=== PATIENT | female | born 1940 | race Hispanic/Latino ===

== ENCOUNTER → 2018-03-06 | Outpatient (CLI) | payer OTHER ==
[~2018-03-06] MED LIST: ALENDRONATE SOD10 MG PO; AMLODIPINE BESY10 MG PO; BACTRIM DS TAB1 EACH PO; CRESTOR10 MG PO; DIATRIZOATE MEGL/DIATRIZOA SOD 30 ML BTL PO ONE; ECOTRIN325 MG PO; FOSINOPRIL SODI10 MG PO; FOSINOPRIL SODI20 M1 PO; HYDROCHLOROTHIA25 MG PO; IOPAMIDOL 370 MG/ML 200 ML INFUS..BTL INJ ONE; JANUVIA100 MG PO; LEVOTHYROXINE25 MCG PO; LINZESS PO; LIPITOR20 MG PO; METFORMIN HCL500 M2 PO; METFORMIN HCL500 M3; PEPCID20 MG PO; PLAVIX75 MG PO; SODIUM CHLORIDE 0.9% 50ML 50 ML ONE; Z.0.AMLODIPINE BESYL PO; Z.0.BONIVA150 MG PO; Z.0.GLIPIZIDE5 MG PO; Z.0.HYDROCHLOROTHIA2 PO; Z.2.METFORMIN HCL500 PO
[2018-03-06 08:48] LABS: BLOOD UREA NITROGEN 16 mg/dL (7-26); BUN/CREATININE RATIO 20 (6-25); CREATININE, SERUM 0.79 mg/dL (0.57-1.11); EST GLOMERULAR FILTRATION RATE > 60 ML/MIN (60-)
--- NOTE | 2018-03-06 11:46 | Diagnostic Imaging Report ---
PROCEDURE: CT ABDOMEN AND PELVIS WITH CONTRAST TECHNIQUE: The abdomen and pelvis were scanned utilizing a multidetector helical scanner from the diaphragm to the lesser trochanter after the IV administration of 100 cc of Isovue 370 and the oral administration of dilute Gastrografin. Coronal and sagittal multiplanar reformations were obtained. COMPARISON: None. INDICATIONS: FREQUENT UTI, COLOVESICAL FISTULA FINDINGS: LOWER THORAX: Lung bases are clear. Atherosclerotic calcification of the thoracic aorta.. HEPATOBILIARY: No focal hepatic lesions. No biliary ductal dilatation. Gallbladder is unremarkable. SPLEEN: No splenomegaly. PANCREAS: No focal masses or ductal dilatation. ADRENALS: No adrenal nodules. KIDNEYS/URETERS: 7-8 mm linear calcific density in the right superior pole (coronal image 64 and series 2, image 27). Punctate, nonobstructing calculus in the right superior to mid aspect (series 2, image 31). No other renal or any ureteral calculi. No hydronephrosis or obstruction. No solid enhancing masses. PELVIC ORGANS/BLADDER: Bladder is unremarkable, without wall thickening, or focal lesions. No contrast or air are seen in the bladder. Uterus is absent. No adnexal masses. PERITONEUM / RETROPERITONEUM: No free air or fluid. LYMPH NODES: No lymphadenopathy. VESSELS: Celiac trunk, superior and inferior mesenteric, and bilateral renal arteries are patent. Portal, superior mesenteric and splenic veins are patent. Atherosclerotic calcification of the abdominal aorta and iliac vessels. GI TRACT: No bowel dilation or evidence of obstruction. Distal descending and sigmoid colon diverticulosis, without diverticulitis. Moderate distention of the distal sigmoid and rectum which measures approximately 5.6 cm in diameter, with mild to moderate retained stool. No pericolonic inflammatory changes. BONES AND SOFT TISSUES: No acute bony abnormalities. Multilevel degenerative disc changes in the lower thoracic and lumbosacral spine. Compression deformity of the T12 vertebral body with vertebroplasty changes. Anterior wedge deformity of the L1 vertebral body. Soft tissues are grossly unremarkable.. IMPRESSION: 1. Bladder is unremarkable, without intraluminal contrast or air to suggest colovesical fistula. 2. Descending and sigmoid colon diverticulosis, without diverticulitis. No pericolonic inflammatory changes. 3. 7-8 mm linear calcific density in the right superior pole may represent a nonobstructing calculus or vascular calcification. There is a punctate, nonobstructing calculus in the right renal superior to mid aspect. No ureteral calculi, hydronephrosis, or obstruction. 4. Moderate distention of the distal sigmoid and rectum with mild to moderate retained stool. Ganga Robertson M.D. Dictated by: Ganga Robertson M.D. on 03/06/2018 at 11:44 Electronically approved by: Ganga Robertson M.D. on 03/06/2018 at 11:44
== END ==
LOC: CT 08:03
PROVIDERS: ATTEND Urology
DX: N81.89 Other female genital prolapse (principal); N95.2 Postmenopausal atrophic vaginitis
CPT/HCPCS: 36415; 74177; 82565; 84520; Q9967

== ENCOUNTER → 2019-04-24 | Day surgery (SDC) | payer OTHER ==
--- NOTE | 2019-04-20 15:47 | Diagnostic Imaging Report ---
Chest, 2 views, 04/20/2019. History: Preop, shortness of breath. Comparison: 03/26/2018. Findings: The cardiomediastinal silhouette and pulmonary vasculature are within normal limits. Minimal linear opacities are present in the left midlung laterally. The lungs are otherwise clear without evidence of consolidation or pleural effusion. Degenerative changes are present within the thoracic and lumbar spine. Vertebral body cement augmentation is noted in the upper lumbar spine. Deformity of the left humeral neck is consistent with old trauma. There are no acute osseous or soft tissue abnormalities. Impression: No acute cardiopulmonary abnormality. Signed by: Jose Enrique Ragland on 04/20/2019 3:44 PM
[2019-04-20 16:37] LABS: BASOPHILS % 0.5 % (0.0-1.0); EOSINOPHILS # (AUTO) 0.3 (0.0-0.4); EOSINOPHILS % 3.2 % (0.0-6.0); HEMATOCRIT 39.6 % (34.2-44.1); HEMOGLOBIN 12.7 g/dL (12.0-16.0); LYMPHOCYTES # (AUTO) 2.4 (1.0-3.2); LYMPHOCYTES % 29.6 % (18.0-39.1); MEAN CORPUSCULAR HEMOGLOBIN 29.5 pg (28-32); MEAN CORPUSCULAR HGB CONC 32.1 g/dL (31-35); MEAN CORPUSCULAR VOLUME 91.9 fL (81-99); MONOCYTES # (AUTO) 0.8 (0.2-0.8); MONOCYTES % 9.5 % (4.4-11.3); NEUTROPHILS # (AUTO) 4.5 (2.1-6.9); NEUTROPHILS % 56.8 % (38.7-80.0); PLATELET COUNT 180 x10e3/uL (140-360); RED BLOOD COUNT 4.31 x10e6/uL (3.6-5.1); RED CELL DISTRIBUTION WIDTH 13.3 % (11.7-14.4)
[2019-04-20 17:01] LABS: BLOOD UREA NITROGEN 15 mg/dL (7-26); BUN/CREATININE RATIO 19 (6-25); CALCIUM 9.5 mg/dL (8.4-10.2); CARBON DIOXIDE 28 mmol/L (22-29); CHLORIDE 102 mmol/L (98-107); CREATININE, SERUM 0.81 mg/dL (0.57-1.11); EST GLOMERULAR FILTRATION RATE > 60 ML/MIN (60-); GLUCOSE 192 mg/dL (74-118); SODIUM 141 mmol/L (136-145)
[~2019-04-24] MED LIST changes: +AZO CRANBERRY1 EAC1 PO; +B&O 60MG R/S 60 MG SUPP PR ONE; +CIPRO500 MG PO; +DEXAMETHASONE SOD PHOS INJ 4 MG/ML VIAL ONE; -DIATRIZOATE MEGL/DIATRIZOA SOD 30 ML BTL PO ONE; -IOPAMIDOL 370 MG/ML 200 ML INFUS..BTL INJ ONE; +IOPAMIDOL 610MG/1ML 300 MG/ML VIAL IV ONE; +LIDOCAINE HCL 2% LOCAL INJ 5 ML SDV VIAL INJ ONE; +MERREM500 MG IV; +MYRBETRIQ50 MG PO; +ONDANSETRON HCL INJ 2MG/ML 2ML 2 MG/ML VIAL ONE; +PIPER-TAZ 3.375 GM 50 ML ONE; +PROPOFOL IV EMULSION 10 MG/ML 20 ML VIAL ONE; +SEVOFLURANE INHAL SOLN 250 ML PEN BTL ONE; -SODIUM CHLORIDE 0.9% 50ML 50 ML ONE; +TRADJENTA5 MG PO; +VITAMIN D2400 UNIT PO
[2019-04-24 13:37] VITALS: BP 142/76
--- NOTE | 2019-06-02 07:36 | Operative Report ---
DATE OF PROCEDURE: 04/24/2019 SURGEON: Isra Montano MD PREOPERATIVE DIAGNOSIS: Recurrent urinary tract infections. POSTOPERATIVE DIAGNOSES: 1. Recurrent urinary tract infections. 2. Grade 2 cystocele. 3. Urethral hypermobility. 4. Rectocele. 5. Atrophic (senile) vaginitis. OPERATIONS PERFORMED: 1. Cystourethroscopy with bilateral ureteral catheterization and retrograde ureteropyelography (separate procedure performed for the urinary tract infections). 2. Interpretation of retrograde ureteropyelography. 3. Supervision of fluoroscopy, no radiologist present. 4. Pelvic examination under anesthesia. ANESTHESIA: General. COMPLICATIONS: None. CLINICAL SUMMARY: Sonia Rodgers is a 78-year-old woman with recurrent urinary tract infection despite multiple modalities of . She was brought for re-evaluation. She is aware of the risks of bleeding, infection, injury to adjacent structures, need for additional procedures and elected to proceed. OPERATIVE PROCEDURE IN DETAIL: Informed consent was verified. Sonia Hollins was properly identified, and taken to the operating room, placed on the cystoscopy table in supine position. Anesthesia was uneventfully begun. The patient was then carefully and gently repositioned in the dorsal lithotomy position with all pressure points well padded. Her genitalia were prepared and draped in usual sterile fashion. The cystoscope sheath with obturator in place was atraumatically inserted into the patient's urethra and bladder was drained. Panendoscopy of the urinary bladder revealed no suspicious mucosal lesions, no tumors, no stones, and no diverticula. Normally positioned and configured ureteral orifices were identified. Ureteral catheter was used to cannulate each ureter and retrograde ureteral pyelograms were performed. Interpretation of retrograde ureteropyelography contrast was instilled in retrograde fashion bilaterally. There were no tumors, no stones, and no diverticula. Unobstructed drainage was observed bilaterally fluoroscopically. The patient's bladder was drained. Cystoscope was withdrawn. Pelvic examination reveals grade 2 cystocele with urethral hypermobility. There was a rectocele present. There was there was atrophic (senile) vaginitis. 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 No abnormal palpable pelvic masses could be appreciated. There were no obvious mucosal lesions . The patient was then uneventfully reversed from anesthesia and taken to recovery room in stable condition. Explicit postop instructions were given. We will follow the patient up in the office. MD CARROLL Nicholas/RICARDO /[id number] cc: .
== END | disposition home or self-care (01) ==
LOC: OR 11:00
PROVIDERS: ATTEND Urology
DX: N39.0 Urinary tract infection, site not specified (principal); N39.46 Mixed incontinence; I10 Essential (primary) hypertension; E11.9 Type 2 diabetes mellitus without complications; E78.00 Pure hypercholesterolemia, unspecified; K21.9 Gastro-esophageal reflux disease without esophagitis; M19.90 Unspecified osteoarthritis, unspecified site; N81.10 Cystocele, unspecified; N81.6 Rectocele; N36.41 Hypermobility of urethra; N95.2 Postmenopausal atrophic vaginitis; Z88.8 Allergy status to other drugs, medicaments and biological substances; Z91.018 Allergy to other foods; Z01.810 Encounter for preprocedural cardiovascular examination; Z01.812 Encounter for preprocedural laboratory examination; Z01.811 Encounter for preprocedural respiratory examination
CPT/HCPCS: 36415 ×2; 52005; 71046; 74420; 80048; 82948; 85025; 87086; 93005; J1100; J2001; J2405; J2543; J2704; Q9967

== ENCOUNTER 2020-05-29 10:13 | Emergency (ER) | payer MEDICARE, OTHER ==
[~2020-05-29] VITALS: Ht 165.1 cm; Wt 95.3 kg
[~2020-05-29 10:13] MED LIST changes: -B&O 60MG R/S 60 MG SUPP PR ONE; -DEXAMETHASONE SOD PHOS INJ 4 MG/ML VIAL ONE; -IOPAMIDOL 610MG/1ML 300 MG/ML VIAL IV ONE; -LIDOCAINE HCL 2% LOCAL INJ 5 ML SDV VIAL INJ ONE; -ONDANSETRON HCL INJ 2MG/ML 2ML 2 MG/ML VIAL ONE; -PIPER-TAZ 3.375 GM 50 ML ONE; -PROPOFOL IV EMULSION 10 MG/ML 20 ML VIAL ONE; -SEVOFLURANE INHAL SOLN 250 ML PEN BTL ONE
--- NOTE | 2020-05-29 10:35 | Emergency Department Note ---
History of Present Illnes History of Present Illness Chief Complaint: Genitourinary History of Present Illness This is a 80 year old female PATIENT IN FROM HOME WITH COMPLAINTS OF URINARY FREQUENCY AND PAIN WITH URINATION SINCE LAST NIGHT; STATES THAT SHE HAS BEEN TREATED BY DR MONTANO FOR RECURRENT UTI'S, BUT SINCE THE START OF THE PANDEMIC SHE HAS NOT BEEN SEEN. PATIENT DENIES PAIN AT THIS TIME, BUT STATES THAT SHE HAS BURNING WITH URINATION. Historian: Patient Arrival Mode: Car Junior Network Engineer Required: No Onset (how long ago): day(s) (last night) Location: urinary Quality: burning Radiation: Reports non-radiation Severity: moderate Onset quality: gradual Timing of current episode: intermittent Progression: waxing and waning Chronicity: recurrent Context: Denies recent illness Relieving factors: none Exacerbating factors: none Associated symptoms: Reports denies other symptoms Past Medical/Family History Physician Review I have reviewed the patient's past medical and family history. Any updates have been documented here. Past Medical History Recent Fever: No Clinical Suspicion of Infectio: No New/Unexplained Change in Ment: No Past Medical History: Hypertension, Diabetes, UTI's, Hyperlipedemia Other Medical History: hyperlipidemia Past Surgical History: Back Surgery Other Surgery: back surgery Social History Smoking Cessation: Never Smoker Counseling Performed: No Alcohol Use: None Any Illegal Drug Use: No TB Exposure/Symptoms: No Physically hurt or threatened: No Family History Family history of heart diseas: No Other Last Tetanus: UNK Any Pre-Existing Lines (PICC,: No Review of Systems Review of Systems Constitutional: Reports no symptoms EENTM: Reports no symptoms Cardiovascular: Reports no symptoms Respiratory: Reports no symptoms Gastrointestinal: Reports no symptoms Genitourinary: Reports as per HPI, Reports dysuria, Reports frequency Musculoskeletal: Reports no symptoms Integumentary: Reports no symptoms Neurological: Reports no symptoms Psychological: Reports no symptoms Endocrine: Reports no symptoms Hematological/Lymphatic: Reports no symptoms Physical Exam Related Data Allergies: Coded Allergies: jacqueline (Verified Allergy, Intermediate, LIPS SWELL, 05/29/20) strawberry (Verified Allergy, Intermediate, LIPS SWELL, 05/29/20) cefaclor (Verified Allergy, Mild, URTICARIA, 05/29/20) meperidine (Verified Allergy, Mild, NAUSEA AND VOMITING, 05/29/20) Triage Vital Signs Vital Signs Date Time Temp Pulse Resp B/P (MAP) Pulse Ox O2 Delivery O2 Flow Rate FiO2 05/29/20 10:17 98.1 102 18 183/89 100 Room Air Vital signs reviewed: Yes Physical Exam CONSTITUTIONAL Constitutional: Present well-developed, Present well-nourished HENT HENT: Present normocephalic, Present atraumatic, Present oropharynx clear/moist, Present nose normal HENT L/R: Present left ext ear normal, Present right ext ear normal EYES Eyes: Reports PERRL, Reports conjunctivae normal NECK Neck: Present ROM normal PULMONARY Pulmonary: Present effort normal, Present breath sounds normal CARDIOVASCULAR Cardiovascular: Present regular rhythm, Present heart sounds normal, Present capillary refill normal, Present normal rate, Present murmur (1/6 sys murmur) GASTROINTESTINAL Abdominal: Present soft, Present nontender, Present bowel sounds normal GENITOURINARY Genitourinary: Present exam deferred SKIN Skin: Present warm, Present dry MUSCULOSKELETAL Musculoskeletal: Present ROM normal NEUROLOGICAL Neurological: Present alert, Present oriented x 3, Present no gross motor or sensory deficits PSYCHOLOGICAL Psychological: Present mood/affect normal, Present judgement normal Results Laboratory Laboratory Laboratory Tests Test 05/29/20 10:22 Urine Color Yellow (YELLOW) Urine Clarity Sl cloudy (CLEAR) Urine pH 6.5 (5 - 7) Urine Specific [place] 1.020 (1.010-1.025) Urine Protein Negative (NEGATIVE) Urine Glucose (UA) Negative (NEGATIVE) Urine Ketones Negative (NEGATIVE) Urine Blood Negative (NEGATIVE) Urine Nitrite Positive (NEGATIVE) Urine Bilirubin Negative (NEGATIVE) Urine Urobilinogen 0.2 mg/dL (0.2 - 1) Urine Leukocyte Esterase Trace (NEGATIVE) Urine RBC 0-5 /HPF (0-5) Urine WBC 11-20 /HPF (0-5) Urine Epithelial Cells Moderate /LPF (NONE) Urine Bacteria Many /HPF (NONE) Urine Mucus Few (RARE) Lab results reviewed: Yes Assessment & Plan Medical Decision Making MDM pt presents with urinary freq and dysuria - check UA/cx, likely ds/c with abx's Reassessment Reassessment dc home, Cipro & Macrobid BID x 10 days, Zofran ODT, Pyridium, F/U PCP and Dr Montano - call in am for appt ~3-4 days to F/U urine cx results Assessment & Plan Final Impression: (1) UTI (urinary tract infection) Depart Disposition: HOME, SELF-CARE Last Vital Signs Date Time Temp Pulse Resp B/P (MAP) Pulse Ox O2 Delivery O2 Flow Rate FiO2 05/29/20 10:17 98.1 102 18 183/89 100 Room Air Home Meds Reported Medications Mirabegron (MYRBETRIQ) 50 Mg Tab.er.24h, PO DAILY 04/24/19 Ergocalciferol (Vitamin D2) (VITAMIN D2) 400 Unit Tablet, PO 04/20/19 Linagliptin (TRADJENTA) 5 Mg Tablet, PO HS 04/20/19 Fosinopril Sodium (FOSINOPRIL SODIUM) 10 Mg Tablet, 20 MG PO HS, #30 TAB 10/25/17 Atorvastatin Calcium (LIPITOR) 20 Mg Tablet, 40 MG PO HS, #30 TAB 10/25/17 Amlodipine Besylate (AMLODIPINE BESYLATE) 10 Mg Tablet, 10 MG PO HS, #30 TAB 10/25/17 Clopidogrel Bisulfate* (PLAVIX) 75 Mg Tablet, 75 MG PO DAILY, #30 TAB 10/25/17 HARRISON LOCKE MD May 29, 2020 10:35
[2020-05-29 10:39] LABS: CLARITY,URINE SL CLOUDY (CLEAR); COLOR,URINE YELLOW (YELLOW); KETONES,URINE NEGATIVE (NEGATIVE); LEUKOCYTE ESTERASE ,URINE TRACE (NEGATIVE); NITRITE,URINE POSITIVE (NEGATIVE); PROTEIN,URINE DIPSTICK NEGATIVE (NEGATIVE)
[2020-05-29 10:40] LABS: BILIRUBIN,URINE NEGATIVE (NEGATIVE); URINE UROBILINOGEN 0.2 mg/dL (0.2 - 1)
[2020-05-29 10:53] LABS: BACTERIA,URINE MANY /HPF; EPITHELIAL CELLS,URINE MODERATE /LPF; MUCUS,URINE FEW (RARE); RBC,URINE 0-5 /HPF (0-5)
--- OUTSIDE RECORDS SUMMARY | 2020-05-29 16:52 | XMS REPORT | Continuity of Care Document ---
Author Author [facility] t Organization [facility] Address [address] [place] [phone] Phone Unavailable Care Team Providers Care Superintendent [employer] Name Role Phone JUANCARLOS HOGAN, MD URBINA PCP HAMPEL, ESA Attphys Unavailable DAHU, S JIRIES Attphys Unavailable TOMPKINS, NITZA Attphys Unavailable DAHU, S JIRIES Admphys Unavailable TOMPKINS, NITZA Admphys Unavailable Payers Payer Name Policy Type Policy Number Effective Date Expiration Date Rojelio regan [facility] [id number] 2018 00:00:00 [facility] [employer] [id number] 2018 00:00:00 [facility] Problems Condition Name Condition Details Condition Category Status Onset Date Resolution Date Last Treatment Date Treating Clinician Comments Source Hypertension Hypertension Problem Active [facility] Urinary tract infection due to extended- spectrum beta lactamase (ESBL) producing Escherichia coli UTI due to extended-spectrum beta lactam ase (ESBL) producing Escherichia coli Problem Active [facility] Urinary tract infection Problem Active [facility] Allergies, Adverse Reactions, Alerts Allergy Name Allergy Type Status Severity Reaction(s) Onset Date Inacti ve Date Treating Clinician Comments Source Cefaclor Allergy to substance Active Mild URTICARIA 2020-05-29 00:00:00 [facility] Meperidine Allergy to substance Active Mild NAUSEA AND VOMI TING 2020-05-29 00:00:00 [facility] [place] Allergy to substance Active Moderate LIPS SWELL 2020-05 00:00:00 [facility] jacqueline Allergy to substance Active Moderate LIPS SWELL 2020-05-29 00:00:0 0 [facility] Social History Social Habit Start Date Stop Date Quantity Comments Source Sex Assigned At 1940 00:00:00 1940 00:00:00 Female [facility] Medications Ordered Medication Name Filled Medication Name Start Date Stop Da te Current Medication? Ordering Clinician Indication Dosage Frequency Signature (SIG) Comments Components Source Amlodipine Besylate Amlodipine Besylate Yes 10 Bedtime [facility] Atorvastatin Calcium (Lipitor) 20 Mg TABLET Atorvastat in Calcium (Lipitor) 20 Mg TABLET Yes 40 Bedtime [facility] Clopidogrel Bisulfate (Plavix) 75 Mg TABLET Clopidogre l Bisulfate (Plavix) 75 Mg TABLET Yes 75 Daily [facility] Ergocalciferol (Vitamin D2) (Vitamin D2) 400 Unit TABL ET Ergocalciferol (Vitamin D2) (Vitamin D2) 400 Unit TABLET Yes [facility] Fosinopril Sodium Fosinopril Sodium Yes 20 Bedt daniel [facility] Linagliptin (Tradjenta) 5 Mg TABLET Linagliptin (Tradjenta) 5 Mg TABL ET Yes Bedtime [facility] Mirabegron (Myrbetriq) 50 Mg TAB.ER.24H Mirabegron (Myrbetri q) 50 Mg TAB.ER.24H Yes Daily [facility] Cranberry Extract/Vit C (Azo Cranberry Softgel) 1 Each CAPSULE Cranberry Extract/Vit C (Azo Cranberry Softgel) 1 Each CAPSULE 2019-04-20 00: 00:00 No 1 Twice A Day [facility] Levothyroxine Sodium Levothyroxine Sodium 2019-04-20 00:00:00 No 25 Daily [facility] Meropenem (Merrem) 500 Mg INJ Meropenem (Merrem) 500 Mg INJ 2019-04-20 00:00:00 No Every 8 Hours C HI [facility] Ciprofloxacin Hcl (Cipro) 500 Mg TABLET Ciprofloxacin Hcl (C ipro) 500 Mg TABLET 2018-03-31 00:00:00 No 500 Every 12 Hours [facility] Meropenem (Merrem) 500 Mg INJ Meropenem (Merrem) 500 Mg INJ 2018-03-31 00:00:00 No Every 6 Hours C HI [facility] Metformin Hcl (Metformin Hcl Er) 500 Mg TAB.ER.24 Metf ormin Hcl (Metformin Hcl Er) 500 Mg TAB.ER.24 2018-03-26 00:00:00 No 500 Twi ce A Day [facility] Sulfamethoxazole/Trimethoprim (Bactrim Ds Tablet) 1 Ea ch TABLET Sulfamethoxazole/Trimethoprim (Bactrim Ds Tablet) 1 Each TABLET 2017-10-30 00:00:00 No 1 Daily [facility] Alendronate Sodium Alendronate Sodium 2017-10-25 00:00:00 No 10 Weekly [facility] Amlodipine Besylate Amlodipine Besylate 2017-10-25 00:00:00 No 10 Daily [facility] Clopidogrel Bisulfate (Plavix) 75 Mg TABLET Clopidogre l Bisulfate (Plavix) 75 Mg TABLET 2017-10-25 00:00:00 No 75 Daily [facility] Fosinopril Sodium Fosinopril Sodium 2017-10-25 00:00:00 No 20 Daily [facility] Hydrochlorothiazide Hydrochlorothiazide 2017-10-25 00:00:00 No 25 Daily [facility] Levothyroxine Sodium Levothyroxine Sodium 2017-10-25 00:00:00 No 25 Daily [facility] Linzess Linzess 2017-10-25 00:00:00 No As Needed [facility] Rosuvastatin Calcium (Crestor) 10 Mg TAB Rosuvastatin Calcium (Crestor) 10 Mg TAB 2017-10-25 00:00:00 No 10 Daily [facility] Sitagliptin Phosphate (Januvia) 100 Mg TABLET Sitaglip tin Phosphate (Januvia) 100 Mg TABLET 2017-10-25 00:00:00 No 50 Daily [facility] Aspirin (Ecotrin) 325 Mg TABLET. Aspirin (Ecotrin) 325 Mg ROGERIO PARDO 2015-01-06 00:00:00 No 325 Daily [facility] Famotidine (Pepcid) 20 Mg TABLET Famotidine (Pepcid) 20 Mg TABLE T 2015-01-06 00:00:00 No 20 Daily [facility] Metformin Hcl Metformin Hcl 2015-01-06 00:00:00 No 500 Twice A Day [facility] Vital Signs Vital Name Observation Time Observation Value Comments Source Weight 2020-05-29 10:17:00 210 [lb_av] [facility] BMI (Body Mass Index) 2020-05-29 10:17:00 34.9 kg/m2 [facility] Procedures This patient has no known procedures. Plan of Care Planned Activity Planned Date Details Comments Source Instructions Urinary Tract Infection - Women [facility] Encounters Start Date/Time End Date/Time Encounter Type Admission Type Attendi [facility] Care Department Encounter ID Source 2020-05-29 10:42:00 2020-05-29 10:57:00 Departed Emergency Room [facility] [id number] [facility] dical Left Hand 2018-03-26 15:35:00 2018-03-31 19:45:00 Discharged Inpatient 3 MIKO RENEE [facility] [id number] [facility] 2018-03-06 08:03:00 2018-03-06 08:03:00 Registered Clinic 3 ESA RECIO [facility] [id number] [facility] Med ical Left Hand 2017-10-25 19:42:00 2017-10-30 11:02:00 Discharged Inpatient ER NITZA TOMPKINS [facility] [id number] [facility] Results Test Description Test Time Test Comments Results Result Comments Source Urine color determination 2020-05-29 10:22:00 Test Item Urine Color (test code = 5778-6) YELLOW YELLOW [facility] xfupvys3611-06-23 10:22:00* Test Item Value Reference Range Interpretation Comments Urine Clarity (test code = 03806-3) SL CLOUDY CLEAR [facility] U[facility] by Test strip 2020-05-29 10:22:00* Test Item Value Reference Range Interpretation Comments Urine Specific [place] (test code = 5811-5) 1.020 1.010-1.02 5 [facility] pH measurement by automated test gxjxg6728-61-79 10:22:00* Test Item Value Reference Range Interpretation Comments Urine pH (test code = 91900-7) 6.5 5-7 [facility] leukocyte esterase detection by rbehpcjb5789-15-54 10:22:00* Test Item Value Reference Range Interpretation Comments Urine Leukocyte Esterase (test code = 5799-2) TRACE NEGATIVE [facility] nitrite dltapayzr3179-29-99 10:22:00* Test Item Value Reference Range Interpretation Comments Urine Nitrite (test code = 98635-7) POSITIVE NEGATIVE [facility] Center[facility] protein measurement by test strip (mass/volume)2020-05-29 10:22:00* Test Item Value Reference Range Interpretation Comments Urine Protein (test code = 5804-0) NEGATIVE NEGATIVE [facility] CenterU[facility] glucose hyrbugddn4559-31-69 10:22:00* Test Item Value Reference Range Interpretation Comments Urine Glucose (UA) (test code = 2349-9) NEGATIVE NEGATIVE [facility] CenterU[facility] ketones detection by automated test rblfj4038-94-00 10:22:00* Test Item Value Reference Range Interpretation Comments Urine Ketones (test code = 89928-3) NEGATIVE NEGATIVE [facility] Center[facility] urobilinogen measurement by test strip (mass/volume)2020-05-29 10:22:00* Test Item Value Reference Range Interpretation Comments Urine Urobilinogen (test code = 68920-8) 0.2 0.2-1 [facility] Center[facility] total bilirubin measurement (mass/volume)2020-05-29 10:22:00* Test Item Value Reference Range Interpretation Comments Urine Bilirubin (test code = 1978-6) NEGATIVE NEGATIVE [facility] CenterU[facility] erythrocytes nfajijmqt2288-64-39 10:22:00* Test Item Value Reference Range Interpretation Comments Urine Blood (test code = 60057-4) NEGATIVE NEGATIVE [facility] CenterAutomated urine sediment leukocyte count by microscopy (number/high power field)2020-05-29 10:22:00* Test Item Value Reference Range Interpretation Comments Urine WBC (test code = 5821-4) 11-20 0-5 [facility] CenterErythrocytes detection in urine sediment by light aqanqdlatf5537-20-95 10:22:00* Test Item Value Reference Range Interpretation Comments Urine RBC (test code = 32059-5) 0-5 0-5 [facility] CenterBacteria detection in urine sediment by light jfzuywnyyd5487-43-99 10:22:00* Test Item Value Reference Range Interpretation Comments Urine Bacteria (test code = 54519-9) MANY NONE [facility] CenterEpithelial cells detection in urine sediment by light mtwjjkkeug1343-07-85 10:22:00* Test Item Value Reference Range Interpretation Comments Urine Epithelial Cells (test code = 19813-3) MODERATE NONE [facility] CenterMucus detection in urine sediment by light corkgapert5976-84-79 10:22:00* Test Item Value Reference Range Interpretation Comments Urine Mucus (test code = 8247-9) FEW RARE [facility] CenterCHEST 2 XWPRS4691-99-27 15:42:00 [facility] [address] [place] [address] Patient Name: ANAT TIAN MR #: [id number] : 1940 Age/Sex: 78/F Req #: [id number] Adm Physician: Ordered by: ESA CARPENTER MD Report #: [id number] Location: OR Room/Bed: Procedure: [id number] DX/ROMAN ST 2 VIEWS Exam Date: Exam Time: REPORT STATUS: Signed Chest, 2 views, 04/20/2019. History: Preop, shortness of breath. Comparison: 03/26/2018. Findings: The cardiomediastinal silhouette and pulmonary vasculature are with in normal limits. Minimal linear opacities are present in the left midlung l aterally. The lungs are otherwise clear without evidence of consolidation or p leural effusion. Degenerative changes are present within the thoracic and lumb ar spine. Vertebral body cement augmentation is noted in the upper lumbar spin e. Deformity of the left humeral neck is consistent with old trauma. There are no acute osseous or soft tissue abnormalities. Impression: No acute ca rdiopulmonary abnormality. Signed by: Jose Enrique Ragland on 04/20/2019 3:44 PM Dictated By: JOSE ENRIQUE RAGLAND MD Electronically Signed By: JOSE ENRIQUE RAGLAND MD o n 04/20/19 1544 Transcribed By: SHO on 04/20/19 1544 COPY TO: ESA HERR MD Bedside Wjipznc9942-05-73 12:17:00* Test Item Value Reference Range Interpretation Comments Bedside Glucose (test code = 44802-1) 105 70-120 Meter ID: [id number] [facility] Northwestodium Level 2018-03-31 08:49:00* Test Item Value Reference Range Interpretation Comments Sodium Level (test code = 2951-2) 144 136-145 [facility] CenterPotassium Dzfhq0971-56-72 08:49:00* Test Item Value Reference Range Interpretation Comments Potassium Level (test code = 2823-3) 3.6 3.5-5.1 [facility] CenterChloride Phwtu5419-88-09 08:49:00* Test Item Value Reference Range Interpretation Comments Chloride Level (test code = 2075-0) 109 98-107 H [facility] CenterCarbon Dioxide Vegbx8019-84-02 08:49:00* Test Item Value Reference Range Interpretation Comments Carbon Dioxide Level (test code = 2028-9) 24 22-29 [facility] CenterAnion Rst1123-65-35 08:49:00* Test Item Value Reference Range Interpretation Comments Anion Gap (test code = 02164-9) 14.6 8-16 [facility] CenterBlood Urea Inmqiahz1121-96-71 08:49:00* Test Item Value Reference Range Interpretation Comments Blood Urea Nitrogen (test code = 3094-0) 8 7-26 [facility] CenterCreatinine2018-07-30 08:49:00* Test Item Value Reference Range Interpretation Comments Creatinine (test code = 2160-0) 0.67 0.57-1.11 [facility] CenterBUN/Creatinine Bojsq8391-07-61 08:49:00* Test Item Value Reference Range Interpretation Comments BUN/Creatinine Ratio (test code = 3097-3) 12 02-24 [facility] CenterEstimat Glomerular Filtration Rate 2018-03-31 08:49:00* Test Item Value Reference Range Interpretation Comments Estimat Glomerular Filtration Rate (test code = 36789-1) 60- >60 Ranges were taken from the National Kidney Disease Education Program and the [facility] Kidney Foundation literature.Reference ranges:60 or greater: Sbpnik24-62 ( for 3 consecutive months): Chronic kidney disease 15 or less: Kidney failureBig [facility] Medical CenterGlucose Couxv7135-42-24 08:49:00* Test Item Value Reference Range Interpretation Comments Glucose Level (test code = AKR9485) 104 74-118 [facility] CenterCalcium Qupcf3398-30-65 08:49:00* Test Item Value Reference Range Interpretation Comments Calcium Level (test code = 07486-4) 9.1 8.4-10.2 [facility] CenterWhite Blood Rkgab6197-14-02 08:36:00* Test Item Value Reference Range Interpretation Comments White Blood Count (test code = 6690-2) 6.49 4.8-10.8 [facility] CenterRed Blood Ykolv9165-27-74 08:36:00* Test Item Value Reference Range Interpretation Comments Red Blood Count (test code = 789-8) 3.97 3.6-5.1 [facility] CenterHemoglobin2018-07-30 08:36:00* Test Item Value Reference Range Interpretation Comments Hemoglobin (test code = 76136-8) 11.7 12.0-16.0 L [facility] CenterHematocrit2018-07-30 08:36:00* Test Item Value Reference Range Interpretation Comments Hematocrit (test code = 4544-3) 35.5 34.2-44.1 [facility] CenterMean Corpuscular Pglsup0139-71-13 08:36:00* Test Item Value Reference Range Interpretation Comments Mean Corpuscular Volume (test code = 787-2) 89.4 81-99 [facility] CenterMean Corpuscular Endcogaxkk6946-84-65 08:36:00* Test Item Value Reference Range Interpretation Comments Mean Corpuscular Hemoglobin (test code = 785-6) 29.5 28-32 [facility] CenterMean Corpuscular Hemoglobin Concent 2018-03-31 08:36:00* Test Item Value Reference Range Interpretation Comments Mean Corpuscular Hemoglobin Concent (test code = 786-4) 33.0 31-35 [facility] CenterRed Cell Distribution Cexyr3403-61-81 08:36:00* Test Item Value Reference Range Interpretation Comments Red Cell Distribution Width (test code = 42559-3) 13.4 11.7 -14.4 [facility] CenterPlatelet Ojfxq7486-29-63 08:36:00* Test Item Value Reference Range Interpretation Comments Platelet Count (test code = 777-3) 148 140-360 [facility] CenterNeutrophils (%) (Auto)2018-03-31 08:36:00 * Test Item Value Reference Range Interpretation Comments Neutrophils (%) (Auto) (test code = 82905-0) 48.2 38.7-80.0 [facility] CenterLymphocytes (%) (Auto)2018-03-31 08:36:00 * Test Item Value Reference Range Interpretation Comments Lymphocytes (%) (Auto) (test code = 736-9) 35.9 18.0-39.1 [facility] CenterMonocytes (%) (Auto)2018-03-31 08:36:00* Test Item Value Reference Range Interpretation Comments Monocytes (%) (Auto) (test code = 5905-5) 9.2 4.4-11.3 [facility] CenterEosinophils (%) (Auto)2018-03-31 08:36:00 * Test Item Value Reference Range Interpretation Comments Eosinophils (%) (Auto) (test code = 713-8) 5.7 0.0-6.0 [facility] CenterBasophils (%) (Auto)2018-03-31 08:36:00* Test Item Value Reference Range Interpretation Comments Basophils (%) (Auto) (test code = 706-2) 0.8 0.0-1.0 [facility] CenterIM GRANULOCYTES %2018-03-31 08:36:00* Test Item Value Reference Range Interpretation Comments IM GRANULOCYTES % (test code = IM GRANULOCYTES %) 0.2 0.0- 1.0 [facility] CenterNeutrophils # (Auto)2018-03-31 08:36:00* Test Item Value Reference Range Interpretation Comments Neutrophils # (Auto) (test code = 751-8) 3.1 2.1-6.9 [facility] CenterLymphocytes # (Auto)2018-03-31 08:36:00* Test Item Value Reference Range Interpretation Comments Lymphocytes # (Auto) (test code = 77032-4) 2.3 1.0-3.2 [facility] CenterMonocytes # (Auto)2018-03-31 08:36:00* Test Item Value Reference Range Interpretation Comments Monocytes # (Auto) (test code = 742-7) 0.6 0.2-0.8 [facility] CenterEosinophils # (Auto)2018-03-31 08:36:00* Test Item Value Reference Range Interpretation Comments Eosinophils # (Auto) (test code = 711-2) 0.4 0.0-0.4 [facility] CenterBasophils # (Auto)2018-03-31 08:36:00* Test Item Value Reference Range Interpretation Comments Basophils # (Auto) (test code = 704-7) 0.1 0.0-0.1 [facility] CenterAbsolute Immature Granulocyte (auto 2018-03-31 08:36:00* Test Item Value Reference Range Interpretation Comments Absolute Immature Granulocyte (auto (nestor t code = Absolute Immature Granulocyte (auto) 0.01 0-0.1 [facility] CenterUrine Aypuwpo8681-32-11 07:51:00* Test Item Value Reference Range Interpretation Comments Urine Culture (test code = 630-4) Organism: KLEBSIELLA PNEUMONIAE-E SBL [facility] CenterCHEST XRAY LINE AAKBRRGAD9400-98-54 21:03:00 [facility] [address] [address] Patient Name: ANAT TIAN MR #: [id number] : 1940 Age/Sex: 77/F Req #: [id number] Adm Physician: MIKO RENEE MD Ordered by: MIKO RENEE MD Report #: [id number] Location: [facility] Room/Bed: [facility] Procedure: [id number] DX /CHEST XRAY LINE PLACEMENT Exam Date: 03/26/18 Exam Time: 2049 REPORT STATUS: Signed EXAM: CHEST XRAY LINE PLACEMENT, AP 1 view INDICATION: PICC placement COMPARISON: AP view of the chest October FINDINGS: LINES/TUBES: Interval placement of right approach PICC w ith tip at the expected location of the distal superior vena cava. LUNGS: No consolidations or edema. PLEURA: No effusions or pneumothorax. HE ART AND MEDIASTINUM: Stable appearance BONES AND SOFT TISSUES: No acute fin dings. IMPRESSION: Interval placement of right approach PICC with tip at the expected location of the distal superior vena cava. Signed by: Dr Oliver Hernandez M.D. on 03/26/2018 9:04 PM Dictated By: MURALI HERNANDEZ MD 03 Transcribed By : SHO on 03/26/182103 COPY TO: MIKO RENEE MD Urine WBC 2018-03-26 18:14:00* Test Item Value Reference Range Interpretation Comments Urine WBC (test code = 5821-4) 21-50 0-5 H [facility] CenterUrine [id number] 18:14:00* Test Item Value Reference Range Interpretation Comments Urine RBC (test code = 79213-3) 0-5 0-5 [facility] CenterUrine Cnttociu2432-24-41 18:14:00* Test Item Value Reference Range Interpretation Comments Urine Bacteria (test code = 28680-4) MANY NONE H [facility] CenterUrine Epithelial Qtwln9503-03-67 18:14:00 * Test Item Value Reference Range Interpretation Comments Urine Epithelial Cells (test code = 85426-1) RARE NONE [facility] CenterUrine Mgsxv0636-31-76 17:57:00* Test Item Value Reference Range Interpretation Comments Urine Color (test code = 5778-6) YELLOW YELLOW [facility] CenterUrine Lnnfiln1466-08-42 17:57:00* Test Item Value Reference Range Interpretation Comments Urine Clarity (test code = 31105-8) SL CLOUDY CLEAR [facility] CenterUrine Specific Lvmxzzh3112-20-76 17:57:00 * Test Item Value Reference Range Interpretation Comments Urine Specific [place] (test code = 5811-5) 1.030 1.010-1.02 5 H [facility] CenterUrine [id number] 17:57:00* Test Item Value Reference Range Interpretation Comments Urine pH (test code = 32539-1) 5 5-7 [facility] CenterUrine Leukocyte Dwougzbr1470-46-82 17:57:00* Test Item Value Reference Range Interpretation Comments Urine Leukocyte Esterase (test code = 5799-2) TRACE NEGATIVE H [facility] CenterUrine Zamvtfm9425-73-22 17:57:00* Test Item Value Reference Range Interpretation Comments Urine Nitrite (test code = 42423-5) POSITIVE NEGATIVE H [facility] CenterUrine Zolmqoo4695-54-67 17:57:00* Test Item Value Reference Range Interpretation Comments Urine Protein (test code = 5804-0) TRACE NEGATIVE H [facility] CenterUrine Glucose (UA)2018-03-26 17:57:00* Test Item Value Reference Range Interpretation Comments Urine Glucose (UA) (test code = 2349-9) NEGATIVE NEGATIVE [facility] CenterU[facility] Pbyyrta2735-83-74 17:57:00* Test Item Value Reference Range Interpretation Comments Urine Ketones (test code = 87663-1) NEGATIVE NEGATIVE [facility] CenterUrine Ncwgdsbytiwf7116-77-65 17:57:00* Test Item Value Reference Range Interpretation Comments Urine Urobilinogen (test code = 37585-2) 0.2 0.2-1 [facility] CenterUrine Mbtkpksej5398-78-62 17:57:00* Test Item Value Reference Range Interpretation Comments Urine Bilirubin (test code = 1978-6) NEGATIVE NEGATIVE [facility] CenterUrine Zmeve5663-73-82 17:57:00* Test Item Value Reference Range Interpretation Comments Urine Blood (test code = 09272-0) NEGATIVE NEGATIVE [facility] CenterMagnesium Hvymx8825-99-29 17:47:00* Test Item Value Reference Range Interpretation Comments Magnesium Level (test code = 52142-4) 2.0 1.3-2.1 [facility] CenterCT ABDOMEN/PELVIS [id number] 11:44:[address] [address] Patient Name: ANAT TIAN MR #: [id number] : 1940 Age/Sex: 77/F Req #: [id number] Adm Physician: Ordered by: ESA CARPENTER MD Report #: [id number] Location: [place] Room/Bed: Procedure: [id number] CT/CT ABDOMEN/PELVIS W Exam Date : 03/06/18 Exam Time: 0940 REPORT STATUS: Jennie d PROCEDURE: CT ABDOMEN AND PELVIS WITH CONTRAST TECHNIQUE: The abdo men and pelvis were scanned utilizing a multidetector helical scanner from th e diaphragm to the lesser trochanter after the IV administration of 100 cc of Isovue 370 and the oral administration of dilute Gastrografin. Coronal and sagittal multiplanar reformations were obtained. COMPARISON: None. INDICATIONS: FREQUENT UTI, COLOVESICAL FISTULA FINDINGS: LOWER THORA X: Lung bases are clear. Atherosclerotic calcification of the thoracic aorta. . HEPATOBILIARY: No focal hepatic lesions. No biliary ductal dilatation. Gallbladder is unremarkable. SPLEEN: No splenomegaly. PANCREAS: No focal masses or ductal dilatation. ADRENALS: No adrenal nodules. KIDNEYS/URETE RS: 7-8 mm linear calcific density in the right superior pole (coronal image 64 and series 2, image 27). Punctate, nonobstructing calculus in the right sup erior to mid aspect (series 2, image 31). No other renal or any ureteral ca lculi. No hydronephrosis or obstruction. No solid enhancing masses. PELVI C ORGANS/BLADDER: Bladder is unremarkable, without wall thickening, or focal lesions. No contrast or air are seen in the bladder. Uterus is absent. No adn exal masses. PERITONEUM / RETROPERITONEUM: No free air or fluid. LYMPH N ODES: No lymphadenopathy. VESSELS: Celiac trunk, superior and inferior mesente emy, and bilateral renal arteries are patent. Portal, superior mesenteric and splenic veins are patent. Atherosclerotic calcification of the abdominal aor ta and iliac vessels. GI TRACT: No bowel dilation or evidence of obstru ction. Distal descending and sigmoid colon diverticulosis, without diverticul itis. Moderate distention of the distal sigmoid and rectum which measures approximately 5.6 cm in diameter, with mild to moderate retained stool. No pe ricolonic inflammatory changes. BONES AND SOFT TISSUES: No acute bony abno rmalities. Multilevel degenerative disc changes in the lower thoracic and lum bosacral spine. Compression deformity of the T12 vertebral body with vertebro plasty changes. Anterior wedge deformity of the L1 vertebral body. Soft ti ssues are grossly unremarkable.. IMPRESSION: 1. Bladder is unremarka ble, without intraluminal contrast or air to suggest colovesical fistula. 2 . Descending and sigmoid colon diverticulosis, without diverticulitis. No per icolonic inflammatory changes. 3. 7-8 mm linear calcific density in the right superior pole may represent a nonobstructing calculus or vascular calcificati on. There is a punctate, nonobstructing calculus in the right renal superior to mid aspect. No ureteral calculi, hydronephrosis, or obstruction. 4. Mode rate distention of the distal sigmoid and rectum with mild to moderate retain ed stool. Ganga Gaspar M.D. Dictated by: Ganga Gaspar M.D. on 03/06/2018 at 11:44 Electronically approved by: Ganga daly M.D. on 03/06/2018 at 11:44 Dictated By: GANGA GASPAR MD 1144 Transcribed By: Mg HEAD on 03/06/18 1144 COPY TO: ESA CARPENTER MD Blood Culture 2017-10-30 19:38:00* Test Item Value Reference Range Interpretation Comments Blood Culture (test code = 71629829) NO GROWTH AFTER 5 DAYS, FINAL [facility]PORT [facility] Syyvk9065-16-11 07:59:00* Test Item Value Reference Range Interpretation Comments Sodium Level (test code = 2951-2) 144 136-145 [facility]Potassium Gdifs5052-15-89 07:59:00* Test Item Value Reference Range Interpretation Comments Potassium Level (test code = 2823-3) 3.5 3.5-5.1 [facility] CenterChloride Ynjcb0259-53-46 07:59:00* Test Item Value Reference Range Interpretation Comments Chloride Level (test code = 2075-0) 109 98-107 H [facility] CenterCarbon Dioxide Wmvkk0803-82-03 07:59:00* Test Item Value Reference Range Interpretation Comments Carbon Dioxide Level (test code = 2028-9) 25 -29 [facility] CenterAnion Bgq4405-88-51 07:59:00* Test Item Value Reference Range Interpretation Comments Anion Gap (test code = 94621-4) 13.5 8-16 [facility] CenterBlood Urea Hnginniw8602-47-67 07:59:00* Test Item Value Reference Range Interpretation Comments Blood Urea Nitrogen (test code = 3094-0) 12 7-26 [facility] CenterCreatinine2018-02-28 07:59:00* Test Item Value Reference Range Interpretation Comments Creatinine (test code = 2160-0) 0.81 0.57-1.11 [facility] CenterBUN/Creatinine Zihkm6265-76-96 07:59:00* Test Item Value Reference Range Interpretation Comments BUN/Creatinine Ratio (test code = 3097-3) 15 6- [facility] CenterEstimat Glomerular Filtration Rate 2017-10-30 07:59:00* Test Item Value Reference Range Interpretation Comments Estimat Glomerular Filtration Rate (test code = 41644-9) 60- >60 Ranges were taken from the National Kidney Disease Education Program and the [facility] [employer] literature.Reference ranges:60 or greater: Efyxnp34-04 ( for 3 consecutive months): Chronic kidney disease 15 or less: Kidney failureBig [facility] CenterGlucose Jveew8344-77-94 07:59:00* Test Item Value Reference Range Interpretation Comments Glucose Level (test code = TMY5593) 111 74-118 [facility] CenterCalcium Oypnu2109-36-41 07:59:00* Test Item Value Reference Range Interpretation Comments Calcium Level (test code = 30144-0) 8.8 8.4-10.2 [facility] CenterWhite Blood Cibrg9865-08-27 07:28:00* Test Item Value Reference Range Interpretation Comments White Blood Count (test code = 6690-2) 5.90 4.8-10.8 [facility] CenterRed Blood Vqvcc8098-50-83 07:28:00* Test Item Value Reference Range Interpretation Comments Red Blood Count (test code = 789-8) 3.72 3.6-5.1 [facility] CenterHemoglobin2018-02-28 07:28:00* Test Item Value Reference Range Interpretation Comments Hemoglobin (test code = 91363-3) 11.1 12.0-16.0 L [facility] CenterHematocrit2018-02-28 07:28:00* Test Item Value Reference Range Interpretation Comments Hematocrit (test code = 4544-3) 32.8 34.2-44.1 L [facility] CenterMean Corpuscular Sfeftc4362-16-61 07:28:00* Test Item Value Reference Range Interpretation Comments Mean Corpuscular Volume (test code = 787-2) 88.2 81-99 [facility] CenterMean Corpuscular Bwvexokktw1929-61-63 07:28:00* Test Item Value Reference Range Interpretation Comments Mean Corpuscular Hemoglobin (test code = 785-6) 29.8 28-32 [facility] CenterMean Corpuscular Hemoglobin Concent 2017-10-30 07:28:00* Test Item Value Reference Range Interpretation Comments Mean Corpuscular Hemoglobin Concent (test code = 786-4) 33.8 31-35 [facility] CenterRed Cell Distribution Truif2014-66-09 07:28:00* Test Item Value Reference Range Interpretation Comments Red Cell Distribution Width (test code = 79843-0) 13.3 11.7 -14.4 [facility] CenterPlatelet Lgfkr8665-97-78 07:28:00* Test Item Value Reference Range Interpretation Comments Platelet Count (test code = 777-3) 145 140-360 [facility] CenterNeutrophils (%) (Auto)2017-10-30 07:28:00 * Test Item Value Reference Range Interpretation Comments Neutrophils (%) (Auto) (test code = 57686-8) 48.8 38.7-80.0 [facility] CenterLymphocytes (%) (Auto)2017-10-30 07:28:00 * Test Item Value Reference Range Interpretation Comments Lymphocytes (%) (Auto) (test code = 736-9) 34.4 18.0-39.1 [facility] CenterMonocytes (%) (Auto)2017-10-30 07:28:00* Test Item Value Reference Range Interpretation Comments Monocytes (%) (Auto) (test code = 5905-5) 11.7 4.4-11.3 H [facility] CenterEosinophils (%) (Auto)2017-10-30 07:28:00 * Test Item Value Reference Range Interpretation Comments Eosinophils (%) (Auto) (test code = 713-8) 4.1 0.0-6.0 [facility] CenterBasophils (%) (Auto)2017-10-30 07:28:00* Test Item Value Reference Range Interpretation Comments Basophils (%) (Auto) (test code = 706-2) 0.7 0.0-1.0 [facility] CenterIM GRANULOCYTES %2017-10-30 07:28:00* Test Item Value Reference Range Interpretation Comments IM GRANULOCYTES % (test code = IM GRANULOCYTES %) 0.3 0.0- 1.0 [facility] CenterNeutrophils # (Auto)2017-10-30 07:28:00* Test Item Value Reference Range Interpretation Comments Neutrophils # (Auto) (test code = 751-8) 2.9 2.1-6.9 [facility] CenterLymphocytes # (Auto)2017-10-30 07:28:00* Test Item Value Reference Range Interpretation Comments Lymphocytes # (Auto) (test code = 05514-9) 2.0 1.0-3.2 [facility] CenterMonocytes # (Auto)2017-10-30 07:28:00* Test Item Value Reference Range Interpretation Comments Monocytes # (Auto) (test code = 742-7) 0.7 0.2-0.8 [facility] CenterEosinophils # (Auto)2017-10-30 07:28:00* Test Item Value Reference Range Interpretation Comments Eosinophils # (Auto) (test code = 711-2) 0.2 0.0-0.4 [facility] CenterBasophils # (Auto)2017-10-30 07:28:00* Test Item Value Reference Range Interpretation Comments Basophils # (Auto) (test code = 704-7) 0.0 0.0-0.1 [facility] CenterAbsolute Immature Granulocyte (auto 2017-10-30 07:28:00* Test Item Value Reference Range Interpretation Comments Absolute Immature Granulocyte (auto (nestor t code = Absolute Immature Granulocyte (auto) 0.02 0-0.1 [facility] CenterBedside Pizoqsv0334-82-09 22:09:00* Test Item Value Reference Range Interpretation Comments Bedside Glucose (test code = 06312-1) 119 70-120 Meter ID: [id number] [facility] Regional Medical CenterBlood Culture 2017-10-28 19:38:00* Test Item Value Reference Range Interpretation Comments Blood Culture (test code = 19823082) NO GROWTH AFTER 72 HOURS [facility] CenterClostridium Difficile Toxin A & B 2017-10-28 14:14:00* Test Item Value Reference Range Interpretation Comments Clostridium Difficile Toxin A & B (test code = 469815018) NEGATIVE NEGATIVE Testing on stool aspirate specimens is outside harness fitter claims since specime n type not validated on this assay.[facility] Clostridium Difficile Toxin A & F2457-77-97 14:14:00* Test Item Value Reference Range Interpretation Comments Clostridium Difficile Toxin A & B (test code = 855608679) NEGATIVE NEGATIVE Testing on stool aspirate specimens is outside harness fitter claims since specime n type not validated on this assay.[facility] Phosphorus Esnbz0788-49-86 08:36:00* Test Item Value Reference Range Interpretation Comments Phosphorus Level (test code = GGL1917) 4.1 2.3-4.7 [facility] CenterMagnesium Tilps9869-53-68 08:36:00* Test Item Value Reference Range Interpretation Comments Magnesium Level (test code = 26942-1) 1.9 1.3-2.1 [facility] CenterTotal Wdjlhmlzf5215-75-79 08:36:00* Test Item Value Reference Range Interpretation Comments Total Bilirubin (test code = 1975-2) 0.3 0.2-1.2 [facility] CenterAspartate Amino Transf (AST/SGOT) 2017-10-26 08:36:00* Test Item Value Reference Range Interpretation Comments Aspartate Amino Transf (AST/SGOT) (test code = Aspartate Amino Transf (AST/SGOT)) 14 5-34 [facility] CenterAlanine Aminotransferase (ALT/SGPT) 2017-10-26 08:36:00* Test Item Value Reference Range Interpretation Comments Alanine Aminotransferase (ALT/SGPT) (test code = 1742-6) 11 0-55 [facility] CenterTotal Jjkgoah7519-95-40 08:36:00* Test Item Value Reference Range Interpretation Comments Total Protein (test code = 2885-2) 6.9 6.5-8.1 [facility] CenterAlbumin2018-02-24 08:36:00* Test Item Value Reference Range Interpretation Comments Albumin (test code = 1751-7) 3.4 3.5-5.0 L [facility] CenterGlobulin2018-02-24 08:36:00* Test Item Value Reference Range Interpretation Comments Globulin (test code = 43869-3) 3.5 2.3-3.5 [facility] CenterAlbumin/Globulin Yclub6060-19-60 08:36:00 * Test Item Value Reference Range Interpretation Comments Albumin/Globulin Ratio (test code = 1759-0) 1.0 0.8-2.0 [facility] CenterAlkaline Djvseuelgic5007-60-58 08:36:00* Test Item Value Reference Range Interpretation Comments Alkaline Phosphatase (test code = 6768-6) 70 40-150 [facility] CenterPhosphorus Wonlf4372-90-71 08:36:00* Test Item Value Reference Range Interpretation Comments Phosphorus Level (test code = BPX3559) 4.1 2.3-4.7 [facility] CenterTotal Hnuedtirm5431-92-03 08:36:00* Test Item Value Reference Range Interpretation Comments Total Bilirubin (test code = 1975-2) 0.3 0.2-1.2 [facility] CenterAspartate Amino Transf (AST/SGOT) 2017-10-26 08:36:00* Test Item Value Reference Range Interpretation Comments Aspartate Amino Transf (AST/SGOT) (test code = Aspartate Amino Transf (AST/SGOT)) 14 5-34 [facility] CenterAlanine Aminotransferase (ALT/SGPT) 2017-10-26 08:36:00* Test Item Value Reference Range Interpretation Comments Alanine Aminotransferase (ALT/SGPT) (test code = 1742-6) 11 0-55 [facility] CenterTotal Livrlzl6456-73-50 08:36:00* Test Item Value Reference Range Interpretation Comments Total Protein (test code = 2885-2) 6.9 6.5-8.1 [facility] CenterAlbumin2018-02-24 08:36:00* Test Item Value Reference Range Interpretation Comments Albumin (test code = 1751-7) 3.4 3.5-5.0 L [facility] CenterGlobulin2018-02-24 08:36:00* Test Item Value Reference Range Interpretation Comments Globulin (test code = 00653-6) 3.5 2.3-3.5 [facility] CenterAlbumin/Globulin Azyhz1914-34-11 08:36:00 * Test Item Value Reference Range Interpretation Comments Albumin/Globulin Ratio (test code = 1759-0) 1.0 0.8-2.0 [facility] CenterAlkaline Dzrgctcljsx3553-68-26 08:36:00* Test Item Value Reference Range Interpretation Comments Alkaline Phosphatase (test code = 6768-6) 70 40-150 [facility] CenterCHEST XRAY LINE PLACEMENT [facility] [address] [place] [address] Patient Name: ANAT TIAN MR #: [id number] : 1940 Age/Sex: 77/F Req #: [id number] Adm Physician: NITZA TOMPKINS MD Ordered by: NITZA TOMPKINS MD Report #: [id number] Location: MED/SURG3 Room/Bed: [facility] Procedure: [id number] DX/CHEST XRAY LINE PLACEMENT Exam Date: 10/26/17 Exam Time: 1145 REPORT STATUS: Signed EXAM: CHEST XRAY LINE PLACEMENT DATE: 11:44 AM INDICATION: COMPARISON: None FINDI NGS: Left PICC with tip overlying SVC. Heart accentuated by low lung volumes. Evaluation for pneumothorax limited given underpenetration and body habitus. IMPRESSION: Left PICC as above. Signed by: Dr. Bhavin Lewis MD on 12:04 PM Dictated By: BHAVIN LEWIS MD 120 Transcribed By: SHO on 10/26/171203 COPY TO: NITZA TOMPKINS MD
== END 2020-05-29 10:57 | disposition home or self-care (01) ==
LOC: ER 10:42
DX: N39.0 Urinary tract infection, site not specified (principal); R30.0 Dysuria; R10.9 Unspecified abdominal pain; I10 Essential (primary) hypertension; E11.9 Type 2 diabetes mellitus without complications; E78.5 Hyperlipidemia, unspecified
CPT/HCPCS: 81001; 87086; 87186; 99283

== ENCOUNTER 2022-02-26 16:15 | Emergency (ER) | payer MEDICARE ==
[~2022-02-26] VITALS: Ht 165.1 cm; Wt 95.3 kg
[2022-02-26 17:11] LABS: CLARITY,URINE CLOUDY (CLEAR); COLOR,URINE ORANGE (YELLOW); LEUKOCYTE ESTERASE ,URINE LARGE (NEGATIVE)
[2022-02-26 17:12] LABS: KETONES,URINE NEGATIVE (NEGATIVE); NITRITE,URINE POSITIVE (NEGATIVE); PROTEIN,URINE DIPSTICK 1+ (NEGATIVE); URINE UROBILINOGEN 2 mg/dL (0.2 - 1)
[2022-02-26] MEDS ORDERED: CEFUROXIME500 MG PO (17:14)
[2022-02-26 17:35] LABS: BACTERIA,URINE MANY /HPF; EPITHELIAL CELLS,URINE FEW /LPF; WBC,URINE (MAN) >50 /HPF (0-5)
== END 2022-02-26 17:27 | disposition home or self-care (01) ==
LOC: ER 16:27
DX: N30.90 Cystitis, unspecified without hematuria (principal); I10 Essential (primary) hypertension; E11.9 Type 2 diabetes mellitus without complications; E78.5 Hyperlipidemia, unspecified; Z88.1 Allergy status to other antibiotic agents; Z91.018 Allergy to other foods; Z79.02 Long term (current) use of antithrombotics/antiplatelets; Z79.84 Long term (current) use of oral hypoglycemic drugs; Z79.899 Other long term (current) drug therapy
CPT/HCPCS: 81001; 87086; 87186; 99282

== ENCOUNTER 2024-04-24 17:37 | Emergency (ER) | payer MEDICARE ==
[~2024-04-24] VITALS: Ht 165.1 cm; Wt 90.4 kg
[~2024-04-24 17:37] MED LIST changes: +CEFUROXIME500 MG PO; +HYDRALAZINE HCL10 MG PO; +IPRATROPIUM BROMIDE; +K DUR10 MEQ PO; +LASIX40 MG PO; +NEOMYCIN-POLYMY10 ML RIGHT EAR; +SYSTANE1 EACH OP; +TRICOR48 MG PO
[2024-04-24 17:47] VITALS: PULSE 110; RESP 18; TEMP 100.8
[2024-04-24] MEDS ORDERED: VITAMIN D350 MCG (19:15)
[2024-04-24] MEDS ORDERED: FLONASE ALLERG9.9 ML INH (19:15)
[2024-04-24] MEDS ORDERED: RYALTRIS 665-2529 GM (19:15)
[2024-04-24] MEDS ORDERED: CENTRUM ADULTS1 EACH PO (19:15)
[2024-04-24] MEDS ORDERED: FLUOCINONIDE60 ML (19:15)
[2024-04-24] MEDS ORDERED: CLOTRIMAZOLE-BE15 GM TOP (19:15)
[2024-04-24] MEDS ORDERED: METOPROLOL SUCC25 MG PO (19:15)
[2024-04-24] MEDS ORDERED: CALCIUM-MAGNES1 EAC6 (19:15)
[2024-04-24] MEDS: SODIUM CHLORIDE 0.9% 500ML 500 ML IV STA (19:30)
[2024-04-24] MEDS: ACETAMINOPHEN 325 MG TAB PO ONE (19:32)
[2024-04-24] MEDS ORDERED: TYLENOL325 MG PO (19:37)
[2024-04-24] MEDS ORDERED: ONDANSETRON ODT4 MG PO (19:37)
[2024-04-24] MEDS ORDERED: CEFDINIR300 MG PO (19:37)
[2024-04-24 20:38] VITALS: BP 156/70; PULSE 100; RESP 18; TEMP 99.8; O2SAT 95
== END 2024-04-24 20:38 | disposition home or self-care (01) ==
LOC: FSED 17:44
DX: R50.9 Fever, unspecified (principal); H66.91 Otitis media, unspecified, right ear; R00.0 Tachycardia, unspecified; I10 Essential (primary) hypertension; E11.9 Type 2 diabetes mellitus without complications; Z11.52 Encounter for screening for COVID-19
CPT/HCPCS: 0223U; 71046; 80053; 81003; 83605; 85025; 87040; 87071; 87086; 87186; 87205; 87400; 99284; J2543; J7040

== ENCOUNTER 2024-09-09 14:58 | Inpatient (IN) | payer MEDICARE ==
[~2024-09-09] VITALS: Ht 165.1 cm; Wt 90.7 kg
[~2024-09-09 14:58] MED LIST changes: +CALCIUM-MAGNES1 EAC6; +CEFDINIR300 MG PO; +CENTRUM ADULTS1 EACH PO; +CLOTRIMAZOLE-BE15 GM TOP; +FLONASE ALLERG9.9 ML INH; +FLUOCINONIDE60 ML; +METOPROLOL SUCC25 MG PO; +ONDANSETRON ODT4 MG PO; +RYALTRIS 665-2529 GM; +TYLENOL325 MG PO; +VITAMIN D350 MCG
[2024-09-09 15:48] LABS: BASOPHILS # (AUTO) 0.1 (0.0-0.1); BASOPHILS % 0.7 % (0.0-1.0); EOSINOPHILS # (AUTO) 0.1 (0.0-0.4); EOSINOPHILS % 1.6 % (0.0-6.0); HEMATOCRIT 41.8 % (34.2-44.1); HEMOGLOBIN 12.8 g/dL (12.0-16.0); LYMPHOCYTES % 22.3 % (18.0-39.1); MEAN CORPUSCULAR HEMOGLOBIN 29.7 pg (28-32); MEAN CORPUSCULAR HGB CONC 30.6 g/dL (31-35); MONOCYTES # (AUTO) 0.8 (0.2-0.8); MONOCYTES % 8.8 % (4.4-11.3); NEUTROPHILS # (AUTO) 5.8 (2.1-6.9); NEUTROPHILS % 66.1 % (38.7-80.0); PLATELET COUNT 203 x10e3/uL (140-360); RED BLOOD COUNT 4.31 x10e6/uL (3.6-5.1)
[2024-09-09 16:05] LABS: BILIRUBIN,URINE NEGATIVE (NEGATIVE); CLARITY,URINE CLEAR (CLEAR); COLOR,URINE YELLOW (YELLOW); GLUCOSE, URINE 1+ (NEGATIVE); KETONES,URINE NEGATIVE (NEGATIVE); LEUKOCYTE ESTERASE ,URINE NEGATIVE (NEGATIVE); NITRITE,URINE NEGATIVE (NEGATIVE); PH,URINE 7 (5 - 7); PROTEIN,URINE DIPSTICK 2+ (NEGATIVE); URINE UROBILINOGEN 0.2 mg/dL (0.2 - 1)
[2024-09-09 16:08] LABS: WBC,URINE (MAN) 0-5 /HPF (0-5)
[2024-09-09 16:09] LABS: BACTERIA,URINE FEW /HPF; EPITHELIAL CELLS,URINE MODERATE /LPF; MUCUS,URINE FEW (RARE)
[2024-09-09 16:10] LABS: CORONAVIRUS COVID-19 AG NEGATIVE (NEGATIVE); INFLUENZA A AG NEGATIVE (NEGATIVE); INFLUENZA B AG NEGATIVE (NEGATIVE)
[2024-09-09] MEDS: LACTATED RINGER'S 1,000 ML INJ ONE (16:20)
[2024-09-09 16:22] LABS: ALBUMIN 4.2 g/dL (3.5-5.0); ANION GAP 18.8 mmol/L (8-16); BILIRUBIN,TOTAL 0.3 mg/dL (0.2-1.2); CREATININE, SERUM 0.98 mg/dL (0.57-1.11); POTASSIUM 3.8 mmol/L (3.5-5.1); TOTAL PROTEIN 8.3 g/dL (6.5-8.1)
[2024-09-09 16:23] LABS: CALCIUM 10.2 mg/dL (8.4-10.2)
[2024-09-09] MEDS ORDERED: IOPAMIDOL 370 MG/ML 100 ML INFUS..BTL INJ ONE (16:27)
[2024-09-09 16:28] LABS: TROPONIN I 0.013 ng/mL (0-0.300)
[2024-09-09 16:41] VITALS: TEMP 98.3
[2024-09-09] MEDS: ASPIRIN 81 MG CHEW TAB PO ONE (18:03)
[2024-09-09 18:38] VITALS: PULSE 116; RESP 16
[2024-09-09 19:58] VITALS: BP 160/88; PULSE 116; RESP 20; TEMP 98.2; O2SAT 97
[2024-09-09 21:00] VITALS: BP 160/88; PULSE 116; RESP 20; TEMP 98.2; O2SAT 97
[2024-09-09 21:35] VITALS: PULSE 108; RESP 20; O2SAT 98
[2024-09-09 23:00] VITALS: BP 160/88; PULSE 116; RESP 20; TEMP 98.2; O2SAT 97
[2024-09-10] VITALS (8 sets, daily range): BP systolic 142–167; BP diastolic 65–83; PULSE 89–104; RESP 18–20; TEMP 97.5–98.3; O2SAT 96–98
[2024-09-10 03:00] LABS: TROPONIN I 0.033 ng/mL (0-0.300)
[2024-09-10] MEDS ORDERED: ONDANSETRON HCL 4 MG ORAL DISINTEGRATING TAB PO PRN (07:15)
[2024-09-10 10:01] LABS: BASOPHILS # (AUTO) 0.1 (0.0-0.1); EOSINOPHILS # (AUTO) 0.3 (0.0-0.4); EOSINOPHILS % 4.4 % (0.0-6.0); HEMATOCRIT 37.4 % (34.2-44.1); HEMOGLOBIN 11.4 g/dL (12.0-16.0); LYMPHOCYTES # (AUTO) 1.7 (1.0-3.2); LYMPHOCYTES % 23.9 % (18.0-39.1); MEAN CORPUSCULAR HEMOGLOBIN 29.6 pg (28-32); MEAN CORPUSCULAR HGB CONC 30.5 g/dL (31-35); MEAN CORPUSCULAR VOLUME 97.1 fL (81-99); MONOCYTES # (AUTO) 0.7 (0.2-0.8); MONOCYTES % 10.6 % (4.4-11.3); NEUTROPHILS # (AUTO) 4.2 (2.1-6.9); NEUTROPHILS % 59.8 % (38.7-80.0); PLATELET COUNT 184 x10e3/uL (140-360); RED BLOOD COUNT 3.85 x10e6/uL (3.6-5.1); RED CELL DISTRIBUTION WIDTH 13.9 % (11.7-14.4); WHITE BLOOD COUNT 6.98 x10e3/uL (4.8-10.8)
[2024-09-10] MEDS: LACTATED RINGER'S 1,000 ML INJ ONE (10:04)
[2024-09-10] MEDS: METOPROLOL SUCCINATE 25 MG TAB XL PO SCH (10:05)
[2024-09-10] MEDS: AMLODIPINE BESYLATE 10 MG TAB PO SCH (10:05)
[2024-09-10] MEDS: FOSINOPRIL SODIUM 10 MG TAB PO SCH (10:05)
[2024-09-10] MEDS: HYDRALAZINE HCL 10 MG TAB PO SCH (10:06)
[2024-09-10] MEDS: SITAGLIPTIN 100 MG TAB PO SCH (10:06)
[2024-09-10] MEDS: FUROSEMIDE 40 MG TAB PO SCH (10:06)
[2024-09-10] MEDS: CLOPIDOGREL BISULFATE 75 MG TAB PO SCH (10:06)
[2024-09-10 10:40] LABS: ANION GAP 13.4 mmol/L (8-16); CALCIUM 9.3 mg/dL (8.4-10.2); CREATININE, SERUM 0.83 mg/dL (0.57-1.11)
[2024-09-10 10:42] LABS: POTASSIUM 3.4 mmol/L (3.5-5.1)
[2024-09-10 10:59] LABS: TROPONIN I 0.012 ng/mL (0-0.300)
[2024-09-10] MEDS: FENOFIBRATE 48 MG TAB PO SCH (11:53)
[2024-09-10] MEDS ORDERED: METOPROLOL SUCC25 MG PO (14:34)
[2024-09-10] MEDS ORDERED: ATORVASTATIN 40 MG TAB PO SCH (21:00)
== END 2024-09-10 15:54 | disposition home or self-care (01) | DRG 305 ==
LOC: ER 15:23 → ERHOLD 18:00 → MED/SURG2 19:44
PROVIDERS: ADMIT Internal Medicine; ATTEND Internal Medicine
DX: I16.9 Hypertensive crisis, unspecified (principal); E87.29 Other acidosis; I10 Essential (primary) hypertension; R16.0 Hepatomegaly, not elsewhere classified; E11.65 Type 2 diabetes mellitus with hyperglycemia; K80.20 Calculus of gallbladder without cholecystitis without obstruction; E78.5 Hyperlipidemia, unspecified; R00.0 Tachycardia, unspecified; I44.0 Atrioventricular block, first degree; R07.89 Other chest pain; R10.11 Right upper quadrant pain; M79.18 Myalgia, other site; R42 Dizziness and giddiness; K76.0 Fatty (change of) liver, not elsewhere classified; R20.0 Anesthesia of skin; E66.9 Obesity, unspecified; Z11.52 Encounter for screening for COVID-19; Z79.02 Long term (current) use of antithrombotics/antiplatelets; Z79.51 Long term (current) use of inhaled steroids; Z90.710 Acquired absence of both cervix and uterus; Z88.1 Allergy status to other antibiotic agents; Z88.5 Allergy status to narcotic agent; Z91.018 Allergy to other foods
CPT/HCPCS: 36415; 71045; 71260; 76705; 80048; 80053; 81001; 82550; 82948; 83690; 83880; 84484; 85025; 93005; 94799; 99284; Q9967